=== PATIENT | female | born 1985 | race Asian ===

== ENCOUNTER 2024-12-30 09:28 | Emergency (ER) | payer OTHER, SELFPAY ==
--- NOTE | 2024-12-30 | ECG_ITS ---
Test Reason : CHEST PAIN Blood Pressure : */* mmHG Vent. Rate : 92 BPM Atrial Rate : 92 BPM P-R Int : 132 ms QRS Dur : 74 ms QT Int : 378 ms P-R-T Axes : 40 56 26 degrees QTcB Int : 467 ms Normal sinus rhythm with sinus arrhythmia Normal ECG No previous ECGs available Referred By: Generic ED Physician Electronically Signed By: Erickson Najera
--- NOTE | ~2024-12-30 | XR_ITS ---
EXAMINATION: XR CHEST 2 VIEWS HISTORY: chest pain COMPARISON: There are no prior studies available for comparison. FINDINGS: PA and lateral views of the chest are submitted. The lungs are expanded and clear. There is no pleural effusion, pneumothorax, or pulmonary vascular congestion. The heart is normal in size. The bones are intact. XR/XR chest 2V IMPRESSION: Clear lungs. Electronically signed by: Alexander Richardson MD 12/30/2024 11:57 AM EDT
[2024-12-30 09:45] VITALS: BP 136/65; PULSE 86; RESP 18; TEMP 36.7; O2SAT 100; BMI 27.9
[2024-12-30 10:02] LABS: MANUAL DIFF FLAG NO
[2024-12-30 10:04] LABS: Hematocrit 39.1 % (37.0-47.0); Hemoglobin 13.7 g/dl (12.0-16.0); Imm Gran Abs Auto 0.02 X10*3/uL (0.00-0.03); Imm Gran Pct Auto 0.3 % (0.0-0.4); Lymphocytes Absolute Auto 2.2 X10*3/uL (1.2-4.9); Mean Corpuscular HGB Conc 35.0 g/dl (31.0-35.0); Mean Corpuscular Hemoglobin 30.9 pg (27.0-33.0); Mean Corpuscular Volume 88.1 fL (80.0-98.0); NRBC Abs Auto 0.000 X10*3/uL (0.0-0.012); NRBC Pct Auto 0.0 /100WBC (0.0-0.2); Platelet Count 288 X10*3/uL (160-400); Red Blood Count 4.44 X10*6/uL (4.20-5.50); White Blood Count 7.3 X10*3/uL (4.8-10.8)
[2024-12-30 10:14] LABS: INTERNATIONAL NORM RATIO 1.0 (0.9-1.1); Prothrombin Time 10.9 SEC (10.9-12.4)
[2024-12-30 10:27] VITALS: BP 145/98; PULSE 89; RESP 12; TEMP 36.9; O2SAT 100
[2024-12-30 10:32] LABS: Anion Gap 11 (12-20); Blood Urea Nitrogen 15 mg/dL (9-16); Calcium 8.9 mg/dL (8.4-10.2); Carbon Dioxide 25 mmol/L (22-29); Chloride 108 mmol/L (96-108); Creatinine Clr Calc Pharmacy 73.6; Estimated Glomerular Filt Rate > 60; Potassium 4.0 mmol/L (3.3-5.1); Sodium 140 mmol/L (135-145)
[2024-12-30 10:43] LABS: Troponin-I High Sensitivity < 2.7 ng/L (<3.5-17.0)
--- OUTSIDE RECORDS SUMMARY | 2024-12-30 10:43 | XMS_ITS | Patient Health Record ---
Author Organization [employer] Address [address] [place] [address] [address] [place] [address] Care Team Providers Care Vessel Operator Name Role Phone Unknown, Unknown Primary Care Provider Unavailab MARY Pino Unavailable [phone] Sophia Mendoza Unavailable [phone] Allergies No Known Allergies Results Component Value Reference Range Notes LIPID PANEL WITH REFLEX TO D IRECT LDL Reviewed date:09/05/2024 04:20:46 PM Interpretation: Performing Lab: Notes/Report: Cholesterol 172 0-200 mg/dL Triglycerides 49 0-150 mg/dL HDL 63 >=40 mg/dL LDL Calculated 99 0-100 mg/dL VLDL Cholesterol Geraldo 9.8 Non HDL Chol. (LDL+VLDL) 109 <145 mg/dL Chol/HDL Ratio 2.7 0.0-4.4 COMPREHENSIVE METABOLIC PANE L Reviewed date:09/05/2024 04:20:39 PM Interpretation: Performing Lab: Notes/Report: Sodium 139 133-145 mmol/L Potassium 3.5 3.5-5.5 mmol/L Chloride 108 96-110 mmol/L CO2 26 21-32 mmol/L Anion Gap 5 3-11 Glucose 90 70-100 mg/dL BUN 15 5-25 mg/dL Creatinine 0.90 0.50-1.10 mg/dL eGFR 83 >=60 mL/min/1.73m2 Calculati on based on the Chronic Kidney Disease Epidemiology Collaboration (CKD-EPI) equation refit without adjustment for race. BUN/Creatinine Ratio 16.7 Calcium 9.2 8.5-10.5 mg/dL AST (SGOT) 23 10-42 unit/L ALT (SGPT) 39 10-60 unit/L Alkaline Phosphatase 61 42-121 unit/L Total Protein 7.1 6.0-8.0 g/dL Albumin 4.0 3.2-5.0 g/dL Total Bilirubin 0.3 0.0-1.4 mg/dL INTERFERON GAMMA NIL Reviewed date:09/06/2024 12:26:54 PM Interpretation: Performing Lab: Notes/Report: INTERFERON GAMMA ANTIGEN 1 Reviewed date:09/06/2024 12:26:51 PM Interpretation: Performing Lab: Notes/Report: INTERFERON GAMMA ANTIGEN 2 Reviewed date:09/06/2024 12:26:48 PM Interpretation: Performing Lab: Notes/Report: INTERFERON GAMMA MITOGEN Reviewed date:09/06/2024 12:26:44 PM Interpretation: Performing Lab: Notes/Report: INTERFERON GAMMA INTERPRETAT ION Reviewed date:09/06/2024 12:26:38 PM Interpretation: Performing Lab: Notes/Report: Quantiferon Plus Interpretation Negative Negative HEPATITIS B SURFACE ANTIBODY QUANTITATIVE Reviewed date:09/05/2024 04:20:43 PM Interpretation: Performing Lab: Notes/Report: >=10 mIU/mL is considered to be consistent with immunity. Hepatitis B Surface Ab Positive Negative Hepatitis B Surface Ab Quantitative 61.2 RUBELLA ANTIBODY IGG Reviewed date:09/08/2024 12:22:20 PM Interpretation: Performing Lab: Notes/Report: Rubella IgG Quant 4.8 >=10.0 I Unit/mL Rubella IgG Antibody Interp Negative Positive MUMPS ANTIBODY IGG Reviewed date:09/06/2024 12:28:19 PM Interpretation: Performing Lab: Notes/Report: >=11 AU/mL is considered to be consistent with Immunity. Mumps IgG Positive Positive Mumps IgG Antibody, measured 18.6 >=11.0 AU/mL RUBEOLA ANTIBODY IGG Reviewed date:09/06/2024 12:28:01 PM Interpretation: Performing Lab: Notes/Report: Interpretation >=16.5 AU/ml is considered to be consistent with Immunity Rubeola IgG Positive Positive Rubeola IgG Antibody, measured 29.20 >=16.50 AU/mL Reason For Referral No Information Medications Medication SIG (Take, Route, Frequency, Duration) Notes Start Date End Date Status D3-50 1.25 MG (08636 UT) TAKE 1 CAPSULE BY MOUTH ONCE WEEKLY; Duration: 84 Not-Taking Phentermine HCl 15 MG 1 capsule Orally T wice a day; Duration: 28 days 05/24/2024 Not-Taking Phentermine HCl 37.5 MG 1 capsule Orally Once a day; Duration: 30 days 12/06/2024 Active Fish Oil 1000 MG as directed Orally Active hydrOXYzine HCl 25 MG 1 tablet at bedtim e as needed Orally Once a day; Duration: 90 days Active Topiramate 50 MG TAKE 1 TABLET BY CHALO TH TWICE A DAY FOR 30 DAYS; Duration: 90 Active Multi For Her Active Vitamin D3 25 MCG (1000 UT) 1 capsule Orally Once a day; Duration: 90 days 12/12/2021 Active Immunizations Vaccine Route Administration Date Status Comme nts Flu Unknown 05/15/2023 Administered Fluzone QD Unknown 01/13/2019 Administered Influenza, seasonal, injectable, 6-35 months Unknown 02/12/2023 Administered MMR SC Subcutaneous 09/12/2024 Administered [facility] - L ot# [id number] TDAP IM Intramuscular 09/12/2024 Administered [facility] - Lot# [id number] Social History Tobacco Use: Social History Observation Description Date Details (start date - stop date) Never Smoker NA - NA Tobacco Use/Smoking Question Answer Notes Are you a nonsmoker Alcohol Screen (Audit-C) Question Answer Notes Did you have a drink contain ing alcohol in the past year? Yes How often did you have a dri nk containing alcohol in the past year? Monthly or less (1 point) Points 1 Interpretation Negative Problems Problem Type SNOMED Code ICD Code Onset Dates Problem Status W/U Status Risk Notes Problem Vitamin D deficiency (04786934) Vitamin D deficiency, unspecified (E55.9) Active confirmed Problem Obesity due to excess calories (660234555) Other obesity due to excess calories (E66.09) Active confirmed Problem Mild recurrent major depression (74508788) Major depressive disorder, recurrent, mild (F33.0) Active confirmed Problem Generalized anxiety disorder (08618279) Generalized anxiety disorder (F41.1) Active confirmed Problem Body mass index 35.00 to 39.99 (184652317849260 ) Body mass index [BMI] 37.0-37.9, adult (Z68.37) Active confirmed Problem Overweight (114392570) Overweight (BMI 25.0-29.9) (E66.3) Active confirmed Vital Signs Heart Rate 101 /min 12/06/2024 Temperature 97.2 degrees Fahrenheit 12/06/2024 Blood pressure diastolic 72 mm Hg 12/06/2024 Oximetry 99 % 12/06/2024 Height 62 in 12/06/2024 Blood pressure systolic 110 mm Hg 12/06/2024 Weight 145.4 lbs 12/06/2024 BMI 26.59 kg/m2 12/06/2024 Encounters Encounter Location Date Provider Diagnosis [facility] [address] [facility] [address] [place] [address] 01/22/2024 HERNANDEZ GUL [facility] [address] [facility] [address] [place] [address] 02/19/2024 HERNANDEZ GUL Other obesity due to excess calories E66.09 and Dietary counseling and surveillance Z71.[address] [place] [address] 03/18/2024 HERNANDEZ GUL Other obesity due to excess calories E66.09 and Dietary counseling and surveillance Z71.[address] [place] [address] 04/22/2024 Ghadeer Mazloum Other obesity due to excess calories E66.09 and Dietary counseling and surveillance Z71.[address] [place] [address] 05/20/2024 HERNANDEZ GUL Other obesity due to excess calories E66.09 and Dietary counseling and surveillance Z71.[address] [place] [address] 06/21/2024 Ghadeer Mazloum Other obesity due to excess calories E66.09 and Dietary counseling and surveillance Z71.[address] [place] [address] 07/19/2024 Ghadeer Mazloum Other obesity due to excess calories E66.09 and Dietary counseling and surveillance Z71.[address] [place] [address] 08/17/2024 Ghadeer Mazloum Other obesity due to excess calories E66.09 and Dietary counseling and surveillance Z71.[address] [place] [address] 09/05/2024 HERNANDEZ GUL Annual physical exam Z00.00 ; Generalized anxiety disorder F41.1 ; Major depressive disorder, recurrent, mild F33.0 ; Overweight (BMI 25.0-29.9) E66.3 and Dietary counseling and surveillance Z71.3 [address] [place] [address] 09/15/2024 HERNANDEZ GU Overweight (BMI 25.0-29.9) E66.3 and Dietary counseling and surveillance Z71.[address] [place] [address] 10/13/2024 Ghadeer Mazloum Dietary counseling and surveillance Z71.3 ; Overweight (BMI 25.0-29.9) E66.3 and Other obesity due to excess calories E66.[address] [place] [address] 11/09/2024 Ghadeer Mazloum Dietary counseling and surveillance Z71.3 ; Overweight (BMI 25.0-29.9) E66.3 and Other obesity due to excess calories E66.[address] [place] [address] 12/06/2024 Ghadeer Mazloum Dietary counseling and surveillance Z71.3 ; Overweight (BMI 25.0-29.9) E66.3 and Other obesity due to excess calories E66.[address] [place] [address] 01/15/[address] [place] [address] 02/19/[address] [place] [address] 02/24/[address] [place] [address] 05/24/[address] [place] [address] 07/18/2024 [facility] [address] [facility] [address] [place] [address] 09/05/2024 HERNANDEZ [facility] [address] [facility] [address] [place] [address] 09/20/2024 HERNANDEZ GUL Other obesity due to excess calories E66.09 [facility] [address] [facility] [address] [place] [address] 09/20/2024 Sophia Mendoza Assessments Encounter Date Diagnosis (ICD Code) Assessment Notes Treatment Notes Treatment Clinical Notes Section Notes 02/19/2024 Other obesity due to excess calories (ICD-10 - E66.09) Ms. Su is a 39 year old lady with major depressive disorder and generalized anxiety disorder here today for medical weight management. We saw her in November. She lost 50.3 lbs in total and no significant weight loss since her last visit. She has been exercising and has been motivated. Plan is as follows: Dietary recommendations. Food recall was done today and patient advised to be on low calorie, low carbohydrate diet. Restrict calories to less than 1500 kcal in 24 hours. Low glycemic index foods and encouraged. Meal replacements were recommended. Advised to use kfph-ukr-clbswrr multivitamins and vitamin D. Advised to use calorie counter and adhere to portion control. Monthly goal is to lose 4-6 pounds Pharmacotherapy. Continue Topamax 50 mg 1 tablet twice a day and Increase Phentermine 30 MG daily. Exercise. Patient encouraged to increase frequency, intensity and duration of exercise. Encouraged to burn at least 250-500 kcal in one session. Also encouraged to do weight training Assess. Different risk factors discussed with the patient and addressed Advise. Patient was given clear And specific advise that she will comply with Low-calorie diet and try not to exceed more than 1300 kcal in 24 hours. Agree. Mutually agreed to work together to achieve appropriate goals Assist. Motivational interviewing done. Arrange. Follow-up appointment arranged. Counseling. 15 minutes spent Face to face with the patient more than 50% of time was spent counseling Scribe services used to formulate this note under HIPAA compliance and under [place] law mandated for scribe services. Patient aware of service. Verbal consent and written consent taken from the patient. Patient understands and verbalizes understanding of the scribes services and all questions answered regarding scribes services. Patient agrees to use of scribes services. 02/19/2024 Dietary counseling and surveillance (ICD-10 - Z71.3) Ms. Su is a 39 year old lady with major depressive disorder and generalized anxiety disorder here today for medical weight management. We saw her in November. She lost 50.3 lbs in total and no significant weight loss since her last visit. She has been exercising and has been motivated. Plan is as follows: Dietary recommendations. Food recall was done today and patient advised to be on low calorie, low carbohydrate diet. Restrict calories to less than 1500 kcal in 24 hours. Low glycemic index foods and encouraged. Meal replacements were recommended. Advised to use qynn-koz-felyuet multivitamins and vitamin D. Advised to use calorie counter and adhere to portion control. Monthly goal is to lose 4-6 pounds Pharmacotherapy. Continue Topamax 50 mg 1 tablet twice a day and Increase Phentermine 30 MG daily. Exercise. Patient encouraged to increase frequency, intensity and duration of exercise. Encouraged to burn at least 250-500 kcal in one session. Also encouraged to do weight training Assess. Different risk factors discussed with the patient and addressed Advise. Patient was given clear And specific advise that she will comply with Low-calorie diet and try not to exceed more than 1300 kcal in 24 hours. Agree. Mutually agreed to work together to achieve appropriate goals Assist. Motivational interviewing done. Arrange. Follow-up appointment arranged. Counseling. 15 minutes spent Face to face with the patient more than 50% of time was spent counseling Scribe services used to formulate this note under HIPAA compliance and under [place] law mandated for scribe services. Patient aware of service. Verbal consent and written consent taken from the patient. Patient understands and verbalizes understanding of the scribes services and all questions answered regarding scribes services. Patient agrees to use of scribes services. 03/18/2024 Other obesity due to excess calories (ICD-10 - E66.09) Ms. Su is a 39 year old lady with major depressive disorder and generalized anxiety disorder here today for medical weight management. We saw her in November. She lost 50.3 lbs in total and no significant weight loss since her last visit. She has been exercising and has been motivated. Plan is as follows: Dietary recommendations. Food recall was done today and patient advised to be on low calorie, low carbohydrate diet. Restrict calories to less than 1500 kcal in 24 hours. Low glycemic index foods and encouraged. Meal replacements were recommended. Advised to use sbpm-vtd-fsphdma multivitamins and vitamin D. Advised to use calorie counter and adhere to portion control. Monthly goal is to lose 4-6 pounds Pharmacotherapy. Continue Topamax 50 mg 1 tablet twice a day and continue Phentermine 30 MG daily. Exercise. Patient encouraged to increase frequency, intensity and duration of exercise. Encouraged to burn at least 250-500 kcal in one session. Also encouraged to do weight training Assess. Different risk factors discussed with the patient and addressed Advise. Patient was given clear And specific advise that she will comply with Low-calorie diet and try not to exceed more than 1300 kcal in 24 hours. Agree. Mutually agreed to work together to achieve appropriate goals Assist. Motivational interviewing done. Arrange. Follow-up appointment arranged. Counseling. 15 minutes spent Face to face with the patient more than 50% of time was spent counseling 03/18/2024 Dietary counseling and surveillance (ICD-10 - Z71.3) Ms. Su is a 39 year old lady with major depressive disorder and generalized anxiety disorder here today for medical weight management. We saw her in November. She lost 50.3 lbs in total and no significant weight loss since her last visit. She has been exercising and has been motivated. Plan is as follows: Dietary recommendations. Food recall was done today and patient advised to be on low calorie, low carbohydrate diet. Restrict calories to less than 1500 kcal in 24 hours. Low glycemic index foods and encouraged. Meal replacements were recommended. Advised to use pthv-qdh-msorfbm multivitamins and vitamin D. Advised to use calorie counter and adhere to portion control. Monthly goal is to lose 4-6 pounds Pharmacotherapy. Continue Topamax 50 mg 1 tablet twice a day and continue Phentermine 30 MG daily. Exercise. Patient encouraged to increase frequency, intensity and duration of exercise. Encouraged to burn at least 250-500 kcal in one session. Also encouraged to do weight training Assess. Different risk factors discussed with the patient and addressed Advise. Patient was given clear And specific advise that she will comply with Low-calorie diet and try not to exceed more than 1300 kcal in 24 hours. Agree. Mutually agreed to work together to achieve appropriate goals Assist. Motivational interviewing done. Arrange. Follow-up appointment arranged. Counseling. 15 minutes spent Face to face with the patient more than 50% of time was spent counseling 04/22/2024 Other obesity due to excess calories (ICD-10 - E66.09) Ms. Su is a 39 year old lady with major depressive disorder and generalized anxiety disorder here today for medical weight management. We saw her in November. She lost 50.3 lbs in total and no significant weight loss since her last visit. She has been exercising and has been motivated. Plan is as follows: Dietary recommendations. Food recall was done today and patient advised to be on low calorie, low carbohydrate diet. Restrict calories to less than 1500 kcal in 24 hours. Low glycemic index foods and encouraged. Meal replacements were recommended. Advised to use bxss-mbd-ylgtzhv multivitamins and vitamin D. Advised to use calorie counter and adhere to portion control. Monthly goal is to lose 4-6 pounds Pharmacotherapy. Continue Topamax 50 mg 1 tablet twice a day and Increased 37.5 MG daily. If she experiences, she can take magnesium supplement. She will do a trial for one month. Exercise. Patient encouraged to increase frequency, intensity and duration of exercise. Encouraged to burn at least 250-500 kcal in one session. Also encouraged to do weight training Assess. Different risk factors discussed with the patient and addressed Advise. Patient was given clear And specific advise that she will comply with Low-calorie diet and try not to exceed more than 1300 kcal in 24 hours. Agree. Mutually agreed to work together to achieve appropriate goals Assist. Motivational interviewing done. Arrange. Follow-up appointment arranged. Counseling. 15 minutes spent Face to face with the patient more than 50% of time was spent counseling I have rendered the services for this patient and Dr. Encinas, who did not see the patient but was available upon request on phone 04/22/2024 Dietary counseling and surveillance (ICD-10 - Z71.3) Ms. Su is a 39 year old lady with major depressive disorder and generalized anxiety disorder here today for medical weight management. We saw her in November. She lost 50.3 lbs in total and no significant weight loss since her last visit. She has been exercising and has been motivated. Plan is as follows: Dietary recommendations. Food recall was done today and patient advised to be on low calorie, low carbohydrate diet. Restrict calories to less than 1500 kcal in 24 hours. Low glycemic index foods and encouraged. Meal replacements were recommended. Advised to use taqa-rji-duzjbtr multivitamins and vitamin D. Advised to use calorie counter and adhere to portion control. Monthly goal is to lose 4-6 pounds Pharmacotherapy. Continue Topamax 50 mg 1 tablet twice a day and Increased 37.5 MG daily. If she experiences, she can take magnesium supplement. She will do a trial for one month. Exercise. Patient encouraged to increase frequency, intensity and duration of exercise. Encouraged to burn at least 250-500 kcal in one session. Also encouraged to do weight training Assess. Different risk factors discussed with the patient and addressed Advise. Patient was given clear And specific advise that she will comply with Low-calorie diet and try not to exceed more than 1300 kcal in 24 hours. Agree. Mutually agreed to work together to achieve appropriate goals Assist. Motivational interviewing done. Arrange. Follow-up appointment arranged. Counseling. 15 minutes spent Face to face with the patient more than 50% of time was spent counseling I have rendered the services for this patient and Dr. Encinas, who did not see the patient but was available upon request on phone 05/20/2024 Other obesity due to excess calories (ICD-10 - E66.09) Ms. Su is a 39 year old lady with major depressive disorder and generalized anxiety disorder here today for medical weight management. We saw her in November. She lost 50.3 lbs in total and no significant weight loss since her last visit. She has been exercising and has been motivated. Plan is as follows: Dietary recommendations. Food recall was done today and patient advised to be on low calorie, low carbohydrate diet. Restrict calories to less than 1500 kcal in 24 hours. Low glycemic index foods and encouraged. Meal replacements were recommended. Advised to use ykwq-nyn-vzfyghf multivitamins and vitamin D. Advised to use calorie counter and adhere to portion control. Monthly goal is to lose 4-6 pounds Pharmacotherapy. Continue Topamax 50 mg 1 tablet twice a day and Increased 37.5 MG daily. If she experiences, she can take magnesium supplement. She will do a trial for one month. Exercise. Patient encouraged to increase frequency, intensity and duration of exercise. Encouraged to burn at least 250-500 kcal in one session. Also encouraged to do weight training Assess. Different risk factors discussed with the patient and addressed Advise. Patient was given clear And specific advise that she will comply with Low-calorie diet and try not to exceed more than 1300 kcal in 24 hours. Agree. Mutually agreed to work together to achieve appropriate goals Assist. Motivational interviewing done. Arrange. Follow-up appointment arranged. Counseling. 15 minutes spent Face to face with the patient more than 50% of time was spent counseling I have rendered the services for this patient and Dr. Encinas, who did not see the patient but was available upon request on phone 05/20/2024 Dietary counseling and surveillance (ICD-10 - Z71.3) Ms. Su is a 39 year old lady with major depressive disorder and generalized anxiety disorder here today for medical weight management. We saw her in November. She lost 50.3 lbs in total and no significant weight loss since her last visit. She has been exercising and has been motivated. Plan is as follows: Dietary recommendations. Food recall was done today and patient advised to be on low calorie, low carbohydrate diet. Restrict calories to less than 1500 kcal in 24 hours. Low glycemic index foods and encouraged. Meal replacements were recommended. Advised to use shed-ipk-imjnnxd multivitamins and vitamin D. Advised to use calorie counter and adhere to portion control. Monthly goal is to lose 4-6 pounds Pharmacotherapy. Continue Topamax 50 mg 1 tablet twice a day and Increased 37.5 MG daily. If she experiences, she can take magnesium supplement. She will do a trial for one month. Exercise. Patient encouraged to increase frequency, intensity and duration of exercise. Encouraged to burn at least 250-500 kcal in one session. Also encouraged to do weight training Assess. Different risk factors discussed with the patient and addressed Advise. Patient was given clear And specific advise that she will comply with Low-calorie diet and try not to exceed more than 1300 kcal in 24 hours. Agree. Mutually agreed to work together to achieve appropriate goals Assist. Motivational interviewing done. Arrange. Follow-up appointment arranged. Counseling. 15 minutes spent Face to face with the patient more than 50% of time was spent counseling I have rendered the services for this patient and Dr. Encinas, who did not see the patient but was available upon request on phone 06/21/2024 Other obesity due to excess calories (ICD-10 - E66.09) Ms. Su is a 39 year old lady with major depressive disorder and generalized anxiety disorder here today for medical weight management. We saw her in November. She lost 50.3 lbs in total and no significant weight loss since her last visit. She has been exercising and has been motivated. Plan is as follows: Dietary recommendations. Food recall was done today and patient advised to be on low calorie, low carbohydrate diet. Restrict calories to less than 1500 kcal in 24 hours. Low glycemic index foods and encouraged. Meal replacements were recommended. Advised to use lhmw-bkg-abaqykb multivitamins and vitamin D. Advised to use calorie counter and adhere to portion control. Monthly goal is to lose 4-6 pounds Pharmacotherapy. Continue Topamax 50 mg 1 tablet twice a day and increase to 37.5 MG daily. If she experiences, she can take magnesium supplement. Exercise. Patient encouraged to increase frequency, intensity and duration of exercise. Encouraged to burn at least 250-500 kcal in one session. Also encouraged to do weight training Assess. Different risk factors discussed with the patient and addressed Advise. Patient was given clear And specific advise that she will comply with Low-calorie diet and try not to exceed more than 1300 kcal in 24 hours. Agree. Mutually agreed to work together to achieve appropriate goals Assist. Motivational interviewing done. Arrange. Follow-up appointment arranged. Counseling. 15 minutes spent Face to face with the patient more than 50% of time was spent counseling I have rendered the services for this patient and Dr. Encinas, who did not see the patient but was available upon request on phone 06/21/2024 Dietary counseling and surveillance (ICD-10 - Z71.3) Ms. Su is a 39 year old lady with major depressive disorder and generalized anxiety disorder here today for medical weight management. We saw her in November. She lost 50.3 lbs in total and no significant weight loss since her last visit. She has been exercising and has been motivated. Plan is as follows: Dietary recommendations. Food recall was done today and patient advised to be on low calorie, low carbohydrate diet. Restrict calories to less than 1500 kcal in 24 hours. Low glycemic index foods and encouraged. Meal replacements were recommended. Advised to use wmut-siw-yefujdx multivitamins and vitamin D. Advised to use calorie counter and adhere to portion control. Monthly goal is to lose 4-6 pounds Pharmacotherapy. Continue Topamax 50 mg 1 tablet twice a day and increase to 37.5 MG daily. If she experiences, she can take magnesium supplement. Exercise. Patient encouraged to increase frequency, intensity and duration of exercise. Encouraged to burn at least 250-500 kcal in one session. Also encouraged to do weight training Assess. Different risk factors discussed with the patient and addressed Advise. Patient was given clear And specific advise that she will comply with Low-calorie diet and try not to exceed more than 1300 kcal in 24 hours. Agree. Mutually agreed to work together to achieve appropriate goals Assist. Motivational interviewing done. Arrange. Follow-up appointment arranged. Counseling. 15 minutes spent Face to face with the patient more than 50% of time was spent counseling I have rendered the services for this patient and Dr. Encinas, who did not see the patient but was available upon request on phone 07/19/2024 Other obesity due to excess calories (ICD-10 - E66.09) Ms. Su is a 39 year old lady with major depressive disorder and generalized anxiety disorder here today for medical weight management. We saw her in November. She lost 50.3 lbs in total and 1lb since the last visit. She has been exercising and has been motivated. Plan is as follows: Dietary recommendations. Food recall was done today and patient advised to be on low calorie, low carbohydrate diet. Restrict calories to less than 1500 kcal in 24 hours. Low glycemic index foods and encouraged. Meal replacements were recommended. Advised to use mhpk-pra-knhtccy multivitamins and vitamin D. Advised to use calorie counter and adhere to portion control. Monthly goal is to lose 4-6 pounds Pharmacotherapy. Continue Topamax 50 mg 1 tablet twice a day and continue on 37.5 MG daily. Exercise. Patient encouraged to increase frequency, intensity and duration of exercise. Encouraged to burn at least 250-500 kcal in one session. Also encouraged to do weight training Assess. Different risk factors discussed with the patient and addressed Advise. Patient was given clear And specific advise that she will comply with Low-calorie diet and try not to exceed more than 1300 kcal in 24 hours. Agree. Mutually agreed to work together to achieve appropriate goals Assist. Motivational interviewing done. Arrange. Follow-up appointment arranged. Counseling. 15 minutes spent Face to face with the patient more than 50% of time was spent counseling I have rendered the services for this patient and Dr. Encinas, who did not see the patient but was available upon request on phone 07/19/2024 Dietary counseling and surveillance (ICD-10 - Z71.3) Ms. Su is a 39 year old lady with major depressive disorder and generalized anxiety disorder here today for medical weight management. We saw her in November. She lost 50.3 lbs in total and 1lb since the last visit. She has been exercising and has been motivated. Plan is as follows: Dietary recommendations. Food recall was done today and patient advised to be on low calorie, low carbohydrate diet. Restrict calories to less than 1500 kcal in 24 hours. Low glycemic index foods and encouraged. Meal replacements were recommended. Advised to use huao-jqn-eawutsa multivitamins and vitamin D. Advised to use calorie counter and adhere to portion control. Monthly goal is to lose 4-6 pounds Pharmacotherapy. Continue Topamax 50 mg 1 tablet twice a day and continue on 37.5 MG daily. Exercise. Patient encouraged to increase frequency, intensity and duration of exercise. Encouraged to burn at least 250-500 kcal in one session. Also encouraged to do weight training Assess. Different risk factors discussed with the patient and addressed Advise. Patient was given clear And specific advise that she will comply with Low-calorie diet and try not to exceed more than 1300 kcal in 24 hours. Agree. Mutually agreed to work together to achieve appropriate goals Assist. Motivational interviewing done. Arrange. Follow-up appointment arranged. Counseling. 15 minutes spent Face to face with the patient more than 50% of time was spent counseling I have rendered the services for this patient and Dr. Encinas, who did not see the patient but was available upon request on phone 08/17/2024 Other obesity due to excess calories (ICD-10 - E66.09) Ms. Su is a 39 year old lady with major depressive disorder and generalized anxiety disorder here today for medical weight management. We saw her in November. She lost 50.3 lbs in total and 1lb since the last visit. She has been exercising and has been motivated. Plan is as follows: Dietary recommendations. Food recall was done today and patient advised to be on low calorie, low carbohydrate diet. Restrict calories to less than 1500 kcal in 24 hours. Low glycemic index foods and encouraged. Meal replacements were recommended. Advised to use wvac-ggg-kppyerb multivitamins and vitamin D. Advised to use calorie counter and adhere to portion control. Monthly goal is to lose 4-6 pounds Pharmacotherapy. Continue Topamax 50 mg 1 tablet twice a day and continue on phentermine 37.5 MG daily. Exercise. Patient encouraged to increase frequency, intensity and duration of exercise. Encouraged to burn at least 250-500 kcal in one session. Also encouraged to do weight training Assess. Different risk factors discussed with the patient and addressed Advise. Patient was given clear And specific advise that she will comply with Low-calorie diet and try not to exceed more than 1300 kcal in 24 hours. Agree. Mutually agreed to work together to achieve appropriate goals Assist. Motivational interviewing done. Arrange. Follow-up appointment arranged. Counseling. 15 minutes spent Face to face with the patient more than 50% of time was spent counseling I have rendered the services for this patient and Dr. Encinas, who did not see the patient but was available upon request on phone 08/17/2024 Dietary counseling and surveillance (ICD-10 - Z71.3) Ms. Su is a 39 year old lady with major depressive disorder and generalized anxiety disorder here today for medical weight management. We saw her in November. She lost 50.3 lbs in total and 1lb since the last visit. She has been exercising and has been motivated. Plan is as follows: Dietary recommendations. Food recall was done today and patient advised to be on low calorie, low carbohydrate diet. Restrict calories to less than 1500 kcal in 24 hours. Low glycemic index foods and encouraged. Meal replacements were recommended. Advised to use evkb-lrd-cvzvjzl multivitamins and vitamin D. Advised to use calorie counter and adhere to portion control. Monthly goal is to lose 4-6 pounds Pharmacotherapy. Continue Topamax 50 mg 1 tablet twice a day and continue on phentermine 37.5 MG daily. Exercise. Patient encouraged to increase frequency, intensity and duration of exercise. Encouraged to burn at least 250-500 kcal in one session. Also encouraged to do weight training Assess. Different risk factors discussed with the patient and addressed Advise. Patient was given clear And specific advise that she will comply with Low-calorie diet and try not to exceed more than 1300 kcal in 24 hours. Agree. Mutually agreed to work together to achieve appropriate goals Assist. Motivational interviewing done. Arrange. Follow-up appointment arranged. Counseling. 15 minutes spent Face to face with the patient more than 50% of time was spent counseling I have rendered the services for this patient and Dr. Encinas, who did not see the patient but was available upon request on phone 09/05/2024 Generalized anxiety disorder (ICD-10 - F41.1) Elkin is 39 years old pleasant lady who is here today for her annual physical. She has anxiety/depressi on and she has lost significant weight and she is on weight management program. Plan is as follows Anxiety/depressi on. It is well controlled at this point in time. She takes hydroxyzine 25 mg as needed which helps with sleep and anxiety as well. Weight management. She has lost significant weight currently on phentermine 37.51 tablet daily along with Topamax 50 mg 1 tablet twice a day. She lost 5 pounds since her last visit. She is physically active. She is up to date on age specific screening. Screening blood work ordered. She also wants to be screened for MMR titers, hepatitis B and TB for school. 09/05/2024 Annual physical exam (ICD-10 - Z00.00) Elkin is 39 years old pleasant lady who is here today for her annual physical. She has anxiety/depressi on and she has lost significant weight and she is on weight management program. Plan is as follows Anxiety/depressi on. It is well controlled at this point in time. She takes hydroxyzine 25 mg as needed which helps with sleep and anxiety as well. Weight management. She has lost significant weight currently on phentermine 37.51 tablet daily along with Topamax 50 mg 1 tablet twice a day. She lost 5 pounds since her last visit. She is physically active. She is up to date on age specific screening. Screening blood work ordered. She also wants to be screened for MMR titers, hepatitis B and TB for school. 09/15/2024 Dietary counseling and surveillance (ICD-10 - Z71.3) Elkin is 39 years old pleasant lady with generalized anxiety disorder/major depression, vitamin D deficiency is here for medical weight management. She is 148 pounds on her scale this morning. On our scale she gained 2 pounds. According to the patient she is doing weight training and there is a possibility that she is gaining muscle mass. Plan is as follows Dietary recommendations. Food recall was done today and patient advised to be on low calorie, low carbohydrate diet. Restrict calories to less than 1500 kcal in 24 hours. Low glycemic index foods and encouraged. Meal replacements were recommended. Advised to use ieto-hqn-pphullr multivitamins and vitamin D. Advised to use calorie counter and adhere to portion control. Monthly goal is to lose 4-6 pounds Pharmacotherapy. Continue on current regimen. Side effects explained to the patient. Goal is to lose 3-5% of body weight in 3 months. Exercise. Patient encouraged to increase frequency, intensity and duration of exercise. Encouraged to burn at least 250-500 kcal in one session. Also encouraged to do weight training Assess. Different risk factors discussed with the patient and addressed Advise. Patient was given clear And specific advise that she will comply with Low-calorie diet and try not to exceed more than 1300 kcal in 24 hours. Agree. Mutually agreed to work together to achieve appropriate goals Assist. Motivational interviewing done. Arrange. Follow-up appointment arranged. Counseling. 20 minutes spent Face to face with the patient more than 50% of time was spent counseling 09/15/2024 Overweight (BMI 25.0-29.9) (ICD-10 - E66.3) Elkin is 39 years old pleasant lady with generalized anxiety disorder/major depression, vitamin D deficiency is here for medical weight management. She is 148 pounds on her scale this morning. On our scale she gained 2 pounds. According to the patient she is doing weight training and there is a possibility that she is gaining muscle mass. Plan is as follows Dietary recommendations. Food recall was done today and patient advised to be on low calorie, low carbohydrate diet. Restrict calories to less than 1500 kcal in 24 hours. Low glycemic index foods and encouraged. Meal replacements were recommended. Advised to use kika-zir-uhwcdpv multivitamins and vitamin D. Advised to use calorie counter and adhere to portion control. Monthly goal is to lose 4-6 pounds Pharmacotherapy. Continue on current regimen. Side effects explained to the patient. Goal is to lose 3-5% of body weight in 3 months. Exercise. Patient encouraged to increase frequency, intensity and duration of exercise. Encouraged to burn at least 250-500 kcal in one session. Also encouraged to do weight training Assess. Different risk factors discussed with the patient and addressed Advise. Patient was given clear And specific advise that she will comply with Low-calorie diet and try not to exceed more than 1300 kcal in 24 hours. Agree. Mutually agreed to work together to achieve appropriate goals Assist. Motivational interviewing done. Arrange. Follow-up appointment arranged. Counseling. 20 minutes spent Face to face with the patient more than 50% of time was spent counseling 09/20/2024 Other obesity due to excess calories (ICD-10 - E66.09) 10/13/2024 Dietary counseling and surveillance (ICD-10 - Z71.3) Elkin is 39 years old pleasant lady with generalized anxiety disorder/major depression, vitamin D deficiency is here for medical weight management. She is 148 pounds on her scale this morning. She lost 4lbs on our scale.. According to the patient she is doing weight training and there is a possibility that she is gaining muscle mass. Plan is as follows Dietary recommendations. Food recall was done today and patient advised to be on low calorie, low carbohydrate diet. Restrict calories to less than 1500 kcal in 24 hours. Low glycemic index foods and encouraged. Meal replacements were recommended. Advised to use npag-hll-gccbewl multivitamins and vitamin D. Advised to use calorie counter and adhere to portion control. Monthly goal is to lose 4-6 pounds Pharmacotherapy. Continue on current regimen. Side effects explained to the patient. Goal is to lose 3-5% of body weight in 3 months. Exercise. Patient encouraged to increase frequency, intensity and duration of exercise. Encouraged to burn at least 250-500 kcal in one session. Also encouraged to do weight training Assess. Different risk factors discussed with the patient and addressed Advise. Patient was given clear And specific advise that she will comply with Low-calorie diet and try not to exceed more than 1300 kcal in 24 hours. Agree. Mutually agreed to work together to achieve appropriate goals Assist. Motivational interviewing done. Arrange. Follow-up appointment arranged. Counseling. 20 minutes spent Face to face with the patient more than 50% of time was spent counseling General concerns have been discussed I have rendered the services for this patient under direct supervision of Dr. Encinas, who did not see the patient but was available upon request 10/13/2024 Overweight (BMI 25.0-29.9) (ICD-10 - E66.3) Elkin is 39 years old pleasant lady with generalized anxiety disorder/major depression, vitamin D deficiency is here for medical weight management. She is 148 pounds on her scale this morning. She lost 4lbs on our scale.. According to the patient she is doing weight training and there is a possibility that she is gaining muscle mass. Plan is as follows Dietary recommendations. Food recall was done today and patient advised to be on low calorie, low carbohydrate diet. Restrict calories to less than 1500 kcal in 24 hours. Low glycemic index foods and encouraged. Meal replacements were recommended. Advised to use mcet-zap-ryxpydy multivitamins and vitamin D. Advised to use calorie counter and adhere to portion control. Monthly goal is to lose 4-6 pounds Pharmacotherapy. Continue on current regimen. Side effects explained to the patient. Goal is to lose 3-5% of body weight in 3 months. Exercise. Patient encouraged to increase frequency, intensity and duration of exercise. Encouraged to burn at least 250-500 kcal in one session. Also encouraged to do weight training Assess. Different risk factors discussed with the patient and addressed Advise. Patient was given clear And specific advise that she will comply with Low-calorie diet and try not to exceed more than 1300 kcal in 24 hours. Agree. Mutually agreed to work together to achieve appropriate goals Assist. Motivational interviewing done. Arrange. Follow-up appointment arranged. Counseling. 20 minutes spent Face to face with the patient more than 50% of time was spent counseling General concerns have been discussed I have rendered the services for this patient under direct supervision of Dr. Encinas, who did not see the patient but was available upon request 11/09/2024 Dietary counseling and surveillance (ICD-10 - Z71.3) Elkin is 39 years old pleasant lady with generalized anxiety disorder/major depression, vitamin D deficiency is here for medical weight management. She is 138 pounds on her scale this morning. She lost 5lbs on our scale and 10lbs on her scale.. According to the patient she is doing weight training and there is a possibility that she is gaining muscle mass. Plan is as follows Dietary recommendations. Food recall was done today and patient advised to be on low calorie, low carbohydrate diet. Restrict calories to less than 1500 kcal in 24 hours. Low glycemic index foods and encouraged. Meal replacements were recommended. Advised to use wlvm-jgq-hzebvye multivitamins and vitamin D. Advised to use calorie counter and adhere to portion control. Monthly goal is to lose 4-6 pounds Pharmacotherapy. Continue on current regimen. Side effects explained to the patient. Goal is to lose 3-5% of body weight in 3 months. Exercise. Patient encouraged to increase frequency, intensity and duration of exercise. Encouraged to burn at least 250-500 kcal in one session. Also encouraged to do weight training Assess. Different risk factors discussed with the patient and addressed Advise. Patient was given clear And specific advise that she will comply with Low-calorie diet and try not to exceed more than 1300 kcal in 24 hours. Agree. Mutually agreed to work together to achieve appropriate goals Assist. Motivational interviewing done. Arrange. Follow-up appointment arranged. Counseling. 20 minutes spent Face to face with the patient more than 50% of time was spent counseling General concerns have been discussed I have rendered the services for this patient under direct supervision of Dr. Encinas, who did not see the patient but was available upon request 11/09/2024 Overweight (BMI 25.0-29.9) (ICD-10 - E66.3) Elkin is 39 years old pleasant lady with generalized anxiety disorder/major depression, vitamin D deficiency is here for medical weight management. She is 138 pounds on her scale this morning. She lost 5lbs on our scale and 10lbs on her scale.. According to the patient she is doing weight training and there is a possibility that she is gaining muscle mass. Plan is as follows Dietary recommendations. Food recall was done today and patient advised to be on low calorie, low carbohydrate diet. Restrict calories to less than 1500 kcal in 24 hours. Low glycemic index foods and encouraged. Meal replacements were recommended. Advised to use ypgi-jre-hrtgjeb multivitamins and vitamin D. Advised to use calorie counter and adhere to portion control. Monthly goal is to lose 4-6 pounds Pharmacotherapy. Continue on current regimen. Side effects explained to the patient. Goal is to lose 3-5% of body weight in 3 months. Exercise. Patient encouraged to increase frequency, intensity and duration of exercise. Encouraged to burn at least 250-500 kcal in one session. Also encouraged to do weight training Assess. Different risk factors discussed with the patient and addressed Advise. Patient was given clear And specific advise that she will comply with Low-calorie diet and try not to exceed more than 1300 kcal in 24 hours. Agree. Mutually agreed to work together to achieve appropriate goals Assist. Motivational interviewing done. Arrange. Follow-up appointment arranged. Counseling. 20 minutes spent Face to face with the patient more than 50% of time was spent counseling General concerns have been discussed I have rendered the services for this patient under direct supervision of Dr. Encinas, who did not see the patient but was available upon request 12/06/2024 Dietary counseling and surveillance (ICD-10 - Z71.3) Elkin is 39 years old pleasant lady with generalized anxiety disorder/major depression, vitamin D deficiency is here for medical weight management. She gained 2 pounds since the last visit. According to the patient she is doing weight training and there is a possibility that she is gaining muscle mass. Plan is as follows Dietary recommendations. Food recall was done today and patient advised to be on low calorie, low carbohydrate diet. Restrict calories to less than 1500 kcal in 24 hours. Low glycemic index foods and encouraged. Meal replacements were recommended. Advised to use kxjl-exq-yurecjt multivitamins and vitamin D. Advised to use calorie counter and adhere to portion control. Monthly goal is to lose 4-6 pounds Pharmacotherapy. Continue on current regimen. Side effects explained to the patient. Goal is to lose 3-5% of body weight in 3 months. Exercise. Patient encouraged to increase frequency, intensity and duration of exercise. Encouraged to burn at least 250-500 kcal in one session. Also encouraged to do weight training Assess. Different risk factors discussed with the patient and addressed Advise. Patient was given clear And specific advise that she will comply with Low-calorie diet and try not to exceed more than 1300 kcal in 24 hours. Agree. Mutually agreed to work together to achieve appropriate goals Assist. Motivational interviewing done. Arrange. Follow-up appointment arranged. Counseling. 20 minutes spent Face to face with the patient more than 50% of time was spent counseling General concerns have been discussed I have rendered the services for this patient under direct supervision of Dr. Encinas, who did not see the patient but was available upon request 12/06/2024 Overweight (BMI 25.0-29.9) (ICD-10 - E66.3) Elkin is 39 years old pleasant lady with generalized anxiety disorder/major depression, vitamin D deficiency is here for medical weight management. She gained 2 pounds since the last visit. According to the patient she is doing weight training and there is a possibility that she is gaining muscle mass. Plan is as follows Dietary recommendations. Food recall was done today and patient advised to be on low calorie, low carbohydrate diet. Restrict calories to less than 1500 kcal in 24 hours. Low glycemic index foods and encouraged. Meal replacements were recommended. Advised to use wljr-hsj-vzarceu multivitamins and vitamin D. Advised to use calorie counter and adhere to portion control. Monthly goal is to lose 4-6 pounds Pharmacotherapy. Continue on current regimen. Side effects explained to the patient. Goal is to lose 3-5% of body weight in 3 months. Exercise. Patient encouraged to increase frequency, intensity and duration of exercise. Encouraged to burn at least 250-500 kcal in one session. Also encouraged to do weight training Assess. Different risk factors discussed with the patient and addressed Advise. Patient was given clear And specific advise that she will comply with Low-calorie diet and try not to exceed more than 1300 kcal in 24 hours. Agree. Mutually agreed to work together to achieve appropriate goals Assist. Motivational interviewing done. Arrange. Follow-up appointment arranged. Counseling. 20 minutes spent Face to face with the patient more than 50% of time was spent counseling General concerns have been discussed I have rendered the services for this patient under direct supervision of Dr. Encinas, who did not see the patient but was available upon request 12/06/2024 Other obesity due to excess calories (ICD-10 - E66.09) Elkin is 39 years old pleasant lady with generalized anxiety disorder/major depression, vitamin D deficiency is here for medical weight management. She gained 2 pounds since the last visit. According to the patient she is doing weight training and there is a possibility that she is gaining muscle mass. Plan is as follows Dietary recommendations. Food recall was done today and patient advised to be on low calorie, low carbohydrate diet. Restrict calories to less than 1500 kcal in 24 hours. Low glycemic index foods and encouraged. Meal replacements were recommended. Advised to use vqak-uve-cvoikqa multivitamins and vitamin D. Advised to use calorie counter and adhere to portion control. Monthly goal is to lose 4-6 pounds Pharmacotherapy. Continue on current regimen. Side effects explained to the patient. Goal is to lose 3-5% of body weight in 3 months. Exercise. Patient encouraged to increase frequency, intensity and duration of exercise. Encouraged to burn at least 250-500 kcal in one session. Also encouraged to do weight training Assess. Different risk factors discussed with the patient and addressed Advise. Patient was given clear And specific advise that she will comply with Low-calorie diet and try not to exceed more than 1300 kcal in 24 hours. Agree. Mutually agreed to work together to achieve appropriate goals Assist. Motivational interviewing done. Arrange. Follow-up appointment arranged. Counseling. 20 minutes spent Face to face with the patient more than 50% of time was spent counseling General concerns have been discussed I have rendered the services for this patient under direct supervision of Dr. Encinas, who did not see the patient but was available upon request 11/09/2024 Other obesity due to excess calories (ICD-10 - E66.09) Elkin is 39 years old pleasant lady with generalized anxiety disorder/major depression, vitamin D deficiency is here for medical weight management. She is 138 pounds on her scale this morning. She lost 5lbs on our scale and 10lbs on her scale.. According to the patient she is doing weight training and there is a possibility that she is gaining muscle mass. Plan is as follows Dietary recommendations. Food recall was done today and patient advised to be on low calorie, low carbohydrate diet. Restrict calories to less than 1500 kcal in 24 hours. Low glycemic index foods and encouraged. Meal replacements were recommended. Advised to use foni-tqh-gujsswf multivitamins and vitamin D. Advised to use calorie counter and adhere to portion control. Monthly goal is to lose 4-6 pounds Pharmacotherapy. Continue on current regimen. Side effects explained to the patient. Goal is to lose 3-5% of body weight in 3 months. Exercise. Patient encouraged to increase frequency, intensity and duration of exercise. Encouraged to burn at least 250-500 kcal in one session. Also encouraged to do weight training Assess. Different risk factors discussed with the patient and addressed Advise. Patient was given clear And specific advise that she will comply with Low-calorie diet and try not to exceed more than 1300 kcal in 24 hours. Agree. Mutually agreed to work together to achieve appropriate goals Assist. Motivational interviewing done. Arrange. Follow-up appointment arranged. Counseling. 20 minutes spent Face to face with the patient more than 50% of time was spent counseling General concerns have been discussed I have rendered the services for this patient under direct supervision of Dr. Encinas, who did not see the patient but was available upon request 10/13/2024 Other obesity due to excess calories (ICD-10 - E66.09) Elkin is 39 years old pleasant lady with generalized anxiety disorder/major depression, vitamin D deficiency is here for medical weight management. She is 148 pounds on her scale this morning. She lost 4lbs on our scale.. According to the patient she is doing weight training and there is a possibility that she is gaining muscle mass. Plan is as follows Dietary recommendations. Food recall was done today and patient advised to be on low calorie, low carbohydrate diet. Restrict calories to less than 1500 kcal in 24 hours. Low glycemic index foods and encouraged. Meal replacements were recommended. Advised to use gkhm-xbg-dnjytck multivitamins and vitamin D. Advised to use calorie counter and adhere to portion control. Monthly goal is to lose 4-6 pounds Pharmacotherapy. Continue on current regimen. Side effects explained to the patient. Goal is to lose 3-5% of body weight in 3 months. Exercise. Patient encouraged to increase frequency, intensity and duration of exercise. Encouraged to burn at least 250-500 kcal in one session. Also encouraged to do weight training Assess. Different risk factors discussed with the patient and addressed Advise. Patient was given clear And specific advise that she will comply with Low-calorie diet and try not to exceed more than 1300 kcal in 24 hours. Agree. Mutually agreed to work together to achieve appropriate goals Assist. Motivational interviewing done. Arrange. Follow-up appointment arranged. Counseling. 20 minutes spent Face to face with the patient more than 50% of time was spent counseling General concerns have been discussed I have rendered the services for this patient under direct supervision of Dr. Encinas, who did not see the patient but was available upon request 09/05/2024 Major depressive disorder, recurrent, mild (ICD-10 - F33.0) Elkin is 39 years old pleasant lady who is here today for her annual physical. She has anxiety/depressi on and she has lost significant weight and she is on weight management program. Plan is as follows Anxiety/depressi on. It is well controlled at this point in time. She takes hydroxyzine 25 mg as needed which helps with sleep and anxiety as well. Weight management. She has lost significant weight currently on phentermine 37.51 tablet daily along with Topamax 50 mg 1 tablet twice a day. She lost 5 pounds since her last visit. She is physically active. She is up to date on age specific screening. Screening blood work ordered. She also wants to be screened for MMR titers, hepatitis B and TB for school. 09/05/2024 Overweight (BMI 25.0-29.9) (ICD-10 - E66.3) Elkin is 39 years old pleasant lady who is here today for her annual physical. She has anxiety/depressi on and she has lost significant weight and she is on weight management program. Plan is as follows Anxiety/depressi on. It is well controlled at this point in time. She takes hydroxyzine 25 mg as needed which helps with sleep and anxiety as well. Weight management. She has lost significant weight currently on phentermine 37.51 tablet daily along with Topamax 50 mg 1 tablet twice a day. She lost 5 pounds since her last visit. She is physically active. She is up to date on age specific screening. Screening blood work ordered. She also wants to be screened for MMR titers, hepatitis B and TB for school. 09/05/2024 Dietary counseling and surveillance (ICD-10 - Z71.3) Elkin is 39 years old pleasant lady who is here today for her annual physical. She has anxiety/depressi on and she has lost significant weight and she is on weight management program. Plan is as follows Anxiety/depressi on. It is well controlled at this point in time. She takes hydroxyzine 25 mg as needed which helps with sleep and anxiety as well. Weight management. She has lost significant weight currently on phentermine 37.51 tablet daily along with Topamax 50 mg 1 tablet twice a day. She lost 5 pounds since her last visit. She is physically active. She is up to date on age specific screening. Screening blood work ordered. She also wants to be screened for MMR titers, hepatitis B and TB for school. Plan Of Treatment Future Test Test Name Order Date Hepatitis B Surf Ab [id number] Measles/Mumps/Rubella Immunity-[id number] QuantiFERON-TB Gold Plus-[id number] 09/06/19 25 Lipid Panel-[id number] 09/05/2024 Comp. Metabolic Panel [id number] Next Appt Details Provider Name:Sophia rios, 01/04/2025 08:15:00 AM, [address] [place] [address], [phone], Provider Name:Sophia rios, 01/31/2025 08:00:00 AM, [address] [place] [address], [place], [phone], Provider Name:Sophia rios, 03/01/2025 08:00:00 AM, [address] [place] [address], [place], [phone], Provider Name:Sophia Carrasco gabriel, 03/29/2025 08:00:00 AM, [address] [place] [address], [place], [phone], Provider Name:Sophia Carrasco gabriel, 04/26/2025 08:00:00 AM, [address] [place] [address], [place], [address], Insurance Providers Payer Name Payer Address Payer Phone Subscriber Number Group Number Insured Name Patient Relationship to Insured Coverage Start Date Coverage End Date [facility] [address] [address] [place] [address] [id number] Georges, Wilfridoypiseemilia Self - patient is the insured Medical (General) History Medical History History ICD Code Major depressive disorder Generalized anxiety disorder Surgical History Surgery Date(Month/Year) RAFAEL
--- OUTSIDE RECORDS SUMMARY | 2024-12-30 10:43 | XMS_ITS ---
Author Name [facility] Organization Unknown Care Team Organization Name Specialty Phone Email Start Date End [facility]12[facility]23 024 [facility] 09/01/2022 024 [facility] 03/04/2022 12/14/2023
--- NOTE | 2024-12-30 11:02 | ED_ITS ---
HPI - Chest Pain General Chief Complaint: Chest Pain Stated Complaint: chest pain Time Seen by Provider: 12/30/24 11:02 Source: patient Mode of arrival: ambulatory Limitations: no limitations History of Present Illness ED Provider: Dr. Delgado [facility] narrative: This is a 39-year-old female no medical history present hospital today for a 2 minute episode of sternal chest pain that radiates up to her throat. Patient stated that she has difficulty taking deep breath. She had a episode earlier this Thursday which subsided on its own. However she has been having intermittent chest pain and this morning when she was driving to work she had this episode of chest pain again. The patient states she had to pull to the side of the road to catch her breath and drove herself to the ER for further evaluation. She has no medical history no hypertension diabetes does not smoke. No recent travel no hemoptysis, no recent surgery. She denies any coughing or recent fever. Patient did endorse that she has been having many stressors recently. She does drink caffeine throughout her day. Related Data Previous Rx's ?Medication ?Instructions ?Recorded lorazepam 0.5 mg tablet (Ativan) 0.5 mg PO BEDTIME PRN anxiety #3 12/30/24 tabs Allergies Allergy/AdvReac Type Severity Reaction Status Date / Time No Known Allergies Allergy Verified 12/30/24 09:49 Review of Systems 2 Review of Systems: Pertinent review of systems as mentioned in [facility]. All other system otherwise negative. [facility]LY [facility], [facility] Past Medical History [facility], [facility] Narrative: Medical history as mentioned in [facility] Social History Social History Smoked in Last 30 Days: No Use of substances other than those prescribed or required for medical reasons: No Advance Directives: No Advance Directives Information Provided: Yes Patient : No Physical Exam 2 Exam: Exam: General: Pleasant, no distress, interacting appropriately Head: Normacephalic, atraumatic ENT: oral mucosa moist, neck supple, no tracheal deviation Cardiovascular: regular rate, regular rhythm, no murmurs, rubbing, gallops Respiratory: CTAB, no wheeze, rales, rhonchi Gastrointestinal: Soft, non distended, non tender, non guarding Extremities: No limb pain or swelling, no calf tenderness Neurological: Awake and alert, no facial droop noted Skin: Warm and dry Psychiatric: Appropriate mood and thoughts Vital Signs: Vital Signs: Last Vital Signs Temp 98.1 F 12/30/24 12:41 Pulse 72 12/30/24 12:41 Resp 14 12/30/24 12:41 BP 146/86 H 12/30/24 12:41 Pulse Ox 100 12/30/24 12:41 O2 Del Method Room Air 12/30/24 12:41 BMI result Body Mass Index 27.9 Medications Administered Discontinued Medications Generic Name Dose Route Start Last Admin Trade Name Cesario PRN Reason Stop Dose Admin Lorazepam 0.5 mg 12/30/24 11:27 12/30/24 11:43 Lorazepam 0.5 Mg Tablet PO 12/30/24 11:28 0.5 mg ONCE ONE Administration Medical Decision Making Medical Decision Making [facility] Narrative: This is a 39-year-old female presented hospital today for evaluation of chest pain and shortness of breath. She no longer has chest pain currently. We will plan to work patient up for ACS, PE rule out, patient is requesting to get her thyroid examined. We will send off for TSH. Did review patient's EKG shows. Does not show any signs of STEMI, patient's troponin is negative. Patient's low heart score. I do not think this is cardiac ischemia nature. I do have high suspicion for anxiety attack given patient's description that these pain comes in episodes. And waxes and wanes. Patient does realize that this occurs when she is driving on the road as well. We will plan to give patient a small dose of PO ativan Chest x-ray will be ordered as well. We will also plan to order D-dimer to rule out PE. Patient is low risk. TSH is normal, troponin negative, D-dimer is negative. Patient does feel more relaxed after the p.o. Ativan. We will plan to prescribe patient a short course of p.o. Ativan to take for next 3 days. To take as needed for anxiety. Encouraged her to follow up with primary care doctor. Work excuse note will be provided. Patient will be discharged Low heart score. Differential Diagnosis Differential Diagnoses: The differential diagnosis associated with the presentation includes ACS, CAD, anxiety attack, PE Lab Data [facility] Lab Attestation statement: I reviewed the patient's lab results. 12/30/24 09:53 12/30/24 09:53 Labs: Lab Results 12/30/24 12/30/24 Range/Units 09:53 13:12 WBC 7.3 (4.8-10.8) X10*3/uL RBC 4.44 (4.20-5.50) X10*6/uL Hgb 13.7 (12.0-16.0) g/dl Hct 39.1 (37.0-47.0) % MCV 88.1 (80.0-98.0) fL MCH 30.9 (27.0-33.0) pg MCHC 35.0 (31.0-35.0) g/dl RDW 13.0 (11.0-16.0) % Plt Count 288 (160-400) X10*3/uL MPV 9.3 L (9.4-12.3) fL Immature Gran % (Auto) 0.3 (0.0-0.4) % Neut % (Auto) 62.6 (45-73) % Lymph % (Auto) 30.5 (20-40) % [place] % (Auto) 6.0 (2-11) % Eos % (Auto) 0.3 (0-4) % Baso % (Auto) 0.3 (0-2) % Lymph # (Auto) 2.2 (1.2-4.9) X10*3/uL [place] # (Auto) 0.4 (0.1-1.2) X10*3/uL Eos # (Auto) 0.0 (0.0-0.4) X10*3/uL Baso # (Auto) 0.0 (0.0-0.2) X10*3/uL Abs Immat Gran (auto) 0.02 (0.00-0.03) X10*3/uL Absolute Neuts (auto) 4.6 (2.0-8.3) x10*3/uL Absolute Nucleated RBC 0.000 (0.0-0.012) X10*3/uL Nucleated RBC % (auto) 0.0 (0.0-0.2) /100WBC PT 10.9 (10.9-12.4) SEC INR 1.0 (0.9-1.1) D-Dimer High Sensitivty < 150 NG/ML Sodium 140 (135-145) mmol/L Potassium 4.0 (3.3-5.1) mmol/L Chloride 108 (96-108) mmol/L Carbon Dioxide 25 (22-29) mmol/L Anion Gap 11 L (12-20) BUN 15 (9-16) mg/dL Creatinine 0.89 (0.5-1.4) mg/dL Estim Creat Clear Calc 73.6 Estimated GFR > 60 Random Glucose 98 (60-115) mg/dL Calcium 8.9 (8.4-10.2) mg/dL Troponin I High Sens < 2.7 (<3.5-17.0) ng/L TSH 2.06 (0.32-4.0) uIU/mL Independent Interpretation I performed an independent interpretation of an: EKG and Plain X-Ray Radiology Impression Discussion of test interpretation with radiology: I have reviewed the radiologist's reading. Discharge Plan Discharge Clinical Impression: Atypical chest pain Patient Disposition: Home, Self-Care Instructions: Panic Attack (ED) Prescriptions: New lorazepam [Ativan] 0.5 mg tablet 0.5 mg PO BEDTIME PRN (Reason: anxiety) Qty: 3 0RF Stand Alone Forms: Work/School Release Print Language: Estonian
[2024-12-30 12:41] VITALS: BP 146/86; PULSE 72; RESP 14; TEMP 36.7; O2SAT 100
[2024-12-30 13:31] LABS: D Dimer High Sensitivity < 150 NG/ML
[2024-12-30 14:24] VITALS: BP 146/86; PULSE 72; RESP 14; TEMP 36.7; O2SAT 100
== END 2024-12-30 14:39 | disposition home or self-care (01) ==
PROVIDERS: Emergency Provider Student in an Organized Health Care Education/Training Program; PCP Hospitalist
DX: R07.89 Other chest pain (principal); R06.02 Shortness of breath; R07.0 Pain in throat; Z79.899 Other long term (current) drug therapy
CPT/HCPCS: 36415; 71046; 80048; 84443; 84484; 85025; 85379; 85610; 93005; 99284; 99285

== ENCOUNTER → 2024-12-30 09:35 | Outpatient (BNV) | payer OTHER, SELFPAY | PROVIDERS: Emergency Provider Student in an Organized Health Care Education/Training Program; PCP Hospitalist; Visit Provider Internal Medicine Cardiovascular Disease | DX: R07.9 Chest pain, unspecified (principal) | CPT/HCPCS: 93010 ==

== ENCOUNTER → 2024-12-30 11:05 | Outpatient (BNV) | payer OTHER, SELFPAY | PROVIDERS: Emergency Provider Student in an Organized Health Care Education/Training Program; PCP Hospitalist; Visit Provider Radiology Diagnostic Radiology | DX: R07.89 Other chest pain (principal) | CPT/HCPCS: 71046 ==